=== PATIENT | female | born 2000 | race Caucasian/White ===

== ENCOUNTER → 2023-03-16 | Outpatient (CLI) | payer BC, SELFPAY ==
[2023-03-19 22:06] LABS: Chlamydia By Nucleic Acid AMP Negative (Negative); Gonococcus By Nucleic Acid AMP Negative (Negative)
== END | disposition home or self-care (01) ==
LOC: LABSPEC 17:06
PROVIDERS: PCP Pediatrics; Referring Provider Advanced Practice Midwife; Visit Provider Advanced Practice Midwife
DX: Z34.00 Encounter for supervision of normal first pregnancy, unspecified trimester (principal)
CPT/HCPCS: 87086; 87088; 87491; 87591

== ENCOUNTER → 2023-03-29 | Outpatient (CLI) | payer BC, SELFPAY ==
[2023-03-29 11:09] LABS: Absolute Lymphocyte Count 3.15 X10^3/uL (0.83-4.51); Absolute Neutrophil Count 6.9 X10^3/uL (2.0-7.7); Basophil# 0.06 X10^3/uL; Basophil% 0.5 % (0-1); Eosinophil# 0.17 X10^3/uL; Eosinophils% 1.5 % (0-5); Hematocrit 38.4 % (37-47); Hemoglobin 12.9 g/dL (12.0-15.0); Lymphocyte # 3.15 X10^3/ul (0.83-4.51); Lymphocyte % 28.6 % (19-41); Mean Corp Hgb Conc 33.6 g/dL (32-36); Mean Corpuscular Hgb 28.7 pg (27.0-32.0); Mean Corpuscular Volume 85.5 fL (81-99); Mean Platelet Vol. 8.5 fl (6.2-12.0); Monocyte# 0.68 X10^3/uL; Monocyte% 6.2 % (0-10); NRBC Flagged by Analyzer 0 % (0-5); Neutrophil % 62.7 % (47-70); Platelet Count 254 K/mm3 (150-450); RBC Distribution Width CV 12.3 % (11.6-14.6); RBC Distribution Width SD 38.2 fl (35.1-43.9); Red Blood Count 4.49 M/mm3 (4.2-5.4)
[2023-03-29 12:05] LABS: HIV - WCH Non-Reactive (Nonreactive); Hepatitis B Surface Antigen Non-Reactive (Nonreactive); Hepatitis C Antibody Non-Reactive (Nonreactive); Rubella IgG Reactive (Nonreactive); Syphilis Antibodies Non-reactive
[2023-03-29 12:06] LABS: NATERA MAILED SPECIMEN
== END | disposition home or self-care (01) ==
PROVIDERS: PCP Pediatrics; Referring Provider Advanced Practice Midwife; Visit Provider Advanced Practice Midwife
DX: Z34.81 Encounter for supervision of other normal pregnancy, first trimester (principal); Z34.00 Encounter for supervision of normal first pregnancy, unspecified trimester
CPT/HCPCS: 36415; 85025; 86703; 86762; 86780; 86803; 86850; 86900; 86901; 87340

== ENCOUNTER → 2023-06-14 | Outpatient (CLI) | payer BC, SELFPAY ==
--- NOTE | 2023-06-14 15:39 | US_ITS ---
HISTORY: anatomy scan. age by LMP 22 weeks 6 days. TECHNIQUE: Transabdominal pelvic ultrasound was performed. 108 images. COMPARISON: None. FINDINGS: INTRAUTERINE GESTATION(s): Single. PRESENTATION: Breech. HEART MOTION: 150 bpm. PLACENTA: Anterior, grade 0. Low lying with the tip 2 cm from the cervix. CERVIX: 3.5 cm in length, long and closed. AMNIOTIC FLUID: Largest fluid pocket 5.7 cm. biometry- BIPARIETAL DIAMETER: 5.5 cm, corresponding to 22 weeks 4 days. HEAD CIRCUMFERENCE: 20.4 cm, corresponding to 22 weeks 4 days. ABDOMINAL CIRCUMFERENCE: 18.7 cm, corresponding to 23 weeks 3 days. FEMUR LENGTH: 3.7 cm, corresponding to 21 weeks 6 days. ESTIMATED GESTATIONAL AGE: 22 weeks 3 days. ESTIMATED DUE DATE (RIGOBERTO): 10/15/2023. ESTIMATED WEIGHT: 536 g corresponding to 40th percentile. ANATOMY: Anterior and posterior cranial fossa, orbits, nose/lips, spine, bilateral upper and lower extremities, three-vessel cord, cord insertion, stomach, kidneys, and bladder visualized. Limited evaluation of the heart due to position. IMPRESSION: Single living intrauterine currently in breech presentation with an estimated gestational age of 22 weeks 3 days. Low-lying placenta. Limited anatomic survey as above. Electronically Signed: Saba Jha MD at 10:45 EST Reading Location ID and State: [address] [place] [address] Tel , Service support , HISTORY: anatomy scan. age by LMP 22 weeks 6 days. TECHNIQUE: Transabdominal pelvic ultrasound was performed. 108 images. COMPARISON: None. FINDINGS: INTRAUTERINE GESTATION(s): Single. PRESENTATION: Breech. HEART MOTION: 150 bpm. PLACENTA: Anterior, grade 0. Low lying with the tip 2 cm from the cervix. CERVIX: 3.5 cm in length, long and closed. AMNIOTIC FLUID: Largest fluid pocket 5.7 cm. biometry- BIPARIETAL DIAMETER: 5.5 cm, corresponding to 22 weeks 4 days. HEAD CIRCUMFERENCE: 20.4 cm, corresponding to 22 weeks 4 days. ABDOMINAL CIRCUMFERENCE: 18.7 cm, corresponding to 23 weeks 3 days. FEMUR LENGTH: 3.7 cm, corresponding to 21 weeks 6 days. ESTIMATED GESTATIONAL AGE: 22 weeks 3 days. ESTIMATED DUE DATE (RIGOBERTO): 10/15/2023. ESTIMATED WEIGHT: 536 g corresponding to 40th percentile. ANATOMY: Anterior and posterior cranial fossa, orbits, nose/lips, spine, bilateral upper and lower extremities, three-vessel cord, cord insertion, stomach, kidneys, and bladder visualized. Limited evaluation of the heart due to position. US/OB Anatomy w/ Transvaginal IMPRESSION: Single living intrauterine currently in breech presentation with an estimated gestational age of 22 weeks 3 days. Low-lying placenta. Limited anatomic survey as above. Electronically Signed: Saba Jha MD at 10:46 EST ,
== END | disposition home or self-care (01) ==
PROVIDERS: Referring Provider Registered Nurse; Visit Provider Registered Nurse
DX: Z34.00 Encounter for supervision of normal first pregnancy, unspecified trimester (principal)
CPT/HCPCS: 76805; 76817

== ENCOUNTER → 2023-08-10 | Outpatient (CLI) | payer BC, SELFPAY ==
--- NOTE | 2023-08-10 15:07 | US_ITS ---
INDICATION: PLACENTA LOCATION EXAMINATION: Ultrasound US OB Greater Than 14 Weeks TECHNIQUE: Transabdominal and transvaginal pelvic ultrasound was performed. COMPARISON: None. LMP: 01/05/2023 FINDINGS: INTRAUTERINE GESTATION(s): Single. HEART MOTION is 144 bpm. AMNIOTIC FLUID INDEX (LACY): 13.39 ESTIMATED WEIGHT: 1738 g Percentile 47.71%. BIOPHYSICAL PROFILE (BPP): Not assessed. PRESENTATION: Cephalic PLACENTA: Anterior. There is no placenta previa or abruption. CERVIX: Cervix is closed and measures 3.4 cm ANATOMY: Normal appearance of the spine and four-chamber heart which appear normal and were not visualized on prior exam of 06/14/2023. Deferred. BIOMETRY: BPD: 75.9 mm: 30 weeks 3 days Head circumference: 284.1 mm: 31 weeks 1 day Abdominal circumference: 279.2 mm: 32 weeks 0 days Femur length: 57.8 mm: 30 weeks 2 days Estimated weight: 1738 g MATERNAL OVARIES: Not evaluated FREE FLUID: None US/OB Live W Bio Add Fetus IMPRESSION: 1. Single live intrauterine of 30 weeks 6 days gestation with EDC of 10/13/2023. 2. Cephalic position anterior placenta, cervix is closed. heart activity at 1 44 bpm. 3. Normal LACY at 13.39. 4. Normal appearance of the spine and four-chamber view of the heart. No abnormality noted. Electronically Signed: Derek Arevalo MD at 18:41 EST ,
[2023-08-10 15:25] LABS: Absolute Neutrophil Count 3.1 X10^3/uL (2.0-7.7); Basophil# 0.06 X10^3/uL; Basophil% 0.8 % (0-1); Eosinophil# 0.12 X10^3/uL; Eosinophils% 1.6 % (0-5); Hematocrit 37.1 % (37-47); Lymphocyte % 44.7 % (19-41); Mean Corp Hgb Conc 32.3 g/dL (32-36); Mean Corpuscular Hgb 27.8 pg (27.0-32.0); Mean Corpuscular Volume 86.1 fL (81-99); Mean Platelet Vol. 8.8 fl (6.2-12.0); Monocyte# 0.62 X10^3/uL; Monocyte% 8.2 % (0-10); NRBC Flagged by Analyzer 0 % (0-5); Neutrophil # 3.09 X10^3/uL (2.7-7.7); Neutrophil % 40.6 % (47-70); Platelet Count 248 K/mm3 (150-450); RBC Distribution Width CV 13.1 % (11.6-14.6); RBC Distribution Width SD 41.5 fl (35.1-43.9); Red Blood Count 4.31 M/mm3 (4.2-5.4); White Blood Count 7.6 K/mm3 (4.4-11.0)
[2023-08-10 15:54] LABS: Glucose Challenge Gest 1H 50g 132 mg/dL (70-140)
[2023-08-10 18:15] LABS: HIV - WCH Non-Reactive (Nonreactive); Syphilis Antibodies Non-reactive
== END | disposition home or self-care (01) ==
PROVIDERS: Referring Provider Nurse Practitioner Women's Health; Visit Provider Nurse Practitioner Women's Health
DX: Z34.90 Encounter for supervision of normal pregnancy, unspecified, unspecified trimester (principal); Z3A.00 Weeks of gestation of pregnancy not specified
CPT/HCPCS: 36415; 76816; 82950; 85025; 86703; 86780